=== PATIENT | male | born 1995 | race Caucasian/White ===

== ENCOUNTER 2017-08-20 22:47 | Emergency (ER) | payer SELFPAY ==
[2017-08-20] MEDS ORDERED: CEFDINIR 125 MG/5 ML 60ML PO ONE (23:29)
[2017-08-20] MEDS ORDERED: DEXAMETHASONE SOD PHOSPHATE 10MG/ML VIAL PO ONE (23:29)
--- NOTE | 2017-08-20 23:29 | Emergency Department Record ---
History of Present Illness - General Chief complaint: Facial Swelling Stated complaint: SWELLING ON LEFT SIDE OF FACE Time Seen by Provider: 08/20/17 22:48 Source: Patient Mode of Arrival: Ambulatory Limitations: No limitations - History of Present Illness Initial Comments: 21 yo male presents to ED for evaluation of facial swelling to the left side of the lower face x 1 day. Caregivers at the bedside report recent dental pain x 2 days for his swelling symptoms began, deny fevers, chills, or recent illness. Patient is non-verbal due to mental retardation. MD Complaint: Facial swelling Onset/Timin -: Days(s) Exposure: Unknown Severity: Moderate Treatment Prior to Arrival: None Previous Allergy History: None - Related Data Previous Rx's Medication Instructions Recorded Cefdinir [Omnicef] 7.5 ml PO BID #150 ml 08/20/17 Allergies Allergy/AdvReac Type Severity Reaction Status Date / Time No Known Drug Allergies Allergy Verified 08/20/17 23:31 Travel Screening - Travel/Exposure Within Last 30 Days Have you traveled within the last 30 days?: No - Travel Symptoms Symptom Screening: None Review of Systems Constitutional: Denies: Chills, Fever, Malaise, Night sweats Eyes: Denies: Eye discharge, Eye pain ENT: Reports: Dental pain. Denies: Congestion, Ear pain Respiratory: Denies: Cough, Dyspnea Cardiovascular: Denies: Chest pain, Dyspnea on exertion Endocrine: Denies: Fatigue, Heat or cold intolerance Gastrointestinal: Denies: Abdominal pain, Vomiting Genitourinary: Denies: Incontinence, Retention Musculoskeletal: Denies: Arthralgia, Back pain Skin: Denies: Bruising, Change in color Neurological: Denies: Abnormal gait Psychiatric: Denies: Anxiety Hematological/Lymphatic: Denies: Anemia, Blood Clots Past Medical History - SOCIAL HISTORY Smoking Status: Never smoker - RESPIRATORY Hx Respiratory Disorders: No - CARDIOVASCULAR Hx Cardio Disorders: No - NEURO Hx Neuro Disorders: Yes Comment:: Hydrocephalus - GI Hx GI Disorders: No - Hx Genitourinary Disorders: No - ENDOCRINE Hx Endocrine Disorders: No - MUSCULOSKELETAL Hx Musculoskeletal Disorders: No - PSYCH Hx Psych Problems: No - HEMATOLOGY/ONCOLOGY Hx Hematology/Oncology Disorders: No Family Medical History Any Significant Family History?: No Family Hx Comment (NOT TO BE USED IN PLACE OF ITEMS BELOW): adopted Physical Exam - General General Appearance: Alert, Oriented x3, Cooperative, Mild distress Limitations: No limitations - Head Head exam: Atraumatic Head exam detail: Other (STS to the left mandibular region on examination, no induration or fluctuance is present). negative: Abrasion, Contusion, Restrepo's sign, General tenderness, Hematoma, Laceration - Eye Eye exam: negative: Periorbital swelling, Periorbital tenderness - ENT Ear exam: negative: Auricular hematoma, Auricular trauma Nasal Exam: Normal inspection. negative: Active bleeding, Discharge, Foreign body Mouth exam: negative: Laceration, Muffled voice Teeth exam: Dental caries Throat exam: negative: Tonsillar erythema, Tonsillomegaly, R peritonsillar mass , L peritonsillar mass Image of Mouth/Teeth: 1 - Dental fracture present, no gingival abscess present - Neck Neck exam: Normal inspection. negative: Meningismus, Tenderness - Respiratory Respiratory exam: Normal lung sounds bilaterally. negative: Rales, Respiratory distress, Rhonchi, Stridor - Cardiovascular Cardiovascular Exam: Regular rate, Normal rhythm, Normal heart sounds - GI/Abdominal GI/Abdominal exam: Soft. negative: Rebound, Rigid, Tenderness - Rectal Rectal exam: Deferred - exam: Deferred - Extremities Extremities exam: Normal inspection. negative: Pedal edema, Tenderness - Back Back exam: Denies: CVA tenderness (R), CVA tenderness (L) - Neurological Neurological exam: Alert - Psychiatric Psychiatric exam: Normal affect, Normal mood - Skin Skin exam: Normal color. negative: Abrasion Type of lesion: negative: abrasion Course Vital Signs 08/20/17 23:17 Temperature 98.3 F Pulse Rate [ 63 Pulse Ox Probe] Respiratory 20 Rate Blood Pressure 128/74 [Left Arm] Pulse Ox 95 - Reevaluation(s) Reevaluation #1: 08/20/17 23:34 No evidence for gingival or subcutaneous abscess is present on examination, will treat for dental fracture and probable dental abscess with cefdinir and decadron in ED for his STS and reactive edema symptoms. Patient appears stable for discharge at this time. Disposition Disposition: Discharge Clinical Impression: Dental abscess Disposition: Home, Self-Care Condition: (2) Stable Instructions: Dental Abscess (ED) Additional Instructions: Return to ED if your symptoms worsen or if you have any concerns. Cefidinir as directed. Follow-up with your dentist 1-3 days as directed. Prescriptions: Cefdinir [Omnicef] 7.5 ml PO BID #150 ml Forms: Patient Portal Access Time of Disposition: 23:29 Quality - Quality Measures Quality Measures: N/A - Blood Pressure Screening Does Patient Have Any of the Following: No Blood Pressure Classification: Pre-Hypertensive BP Reading Systolic Measurement: 128 Diastolic Measurement: 74 Screening for High Blood Pressure: < Pre-Hypertensive BP, F/U Documented > [ G8950] Pre-Hypertensive Follow-up Interventions: Referral to alternative/primary care provider.
== END 2017-08-20 23:46 | disposition home or self-care (01) ==
LOC: ER 22:47
DX: S02.5XXA Fracture of tooth (traumatic), initial encounter for closed fracture (principal); K04.7 Periapical abscess without sinus; X58.XXXA Exposure to other specified factors, initial encounter
CPT/HCPCS: J3490; J1100; 99282

== ENCOUNTER 2018-06-22 00:11 | Emergency (ER) | payer MEDICAID ==
--- NOTE | 2018-06-22 00:44 | Emergency Department Record ---
History of Present Illness - General Chief complaint: ENT Stated complaint: NON VERBAL Time Seen by Provider: 06/22/18 00:41 Source: Family Mode of Arrival: Ambulatory Limitations: Other - History of Present Illness Initial comments: 22 yo male with a history significant for mental retardation and non-verbal at his baseline presents to ED for evaluation of possible right ear/dental pain symptoms. Family reports that the patient has been pulling at his right ear and squinting as though he is in pain. Family members deny fevers, chills, or recent illness. MD complaint: Ear pain, Tooth pain, Other Onset/Timin -: Hour(s) Location: R ear - Related Data Previous Rx's Medication Instructions Recorded Amoxicillin [Amoxil] 10 ml PO BID #200 ml 06/22/18 Allergies Allergy/AdvReac Type Severity Reaction Status Date / Time No Known Drug Allergies Allergy Verified 08/20/17 23:31 Travel Screening - Travel/Exposure Within Last 30 Days Have you traveled within the last 30 days?: No - Travel Symptoms Symptom Screening: None Review of Systems ROS unobtainable: Other Past Medical History - SOCIAL HISTORY Smoking Status: Never smoker - RESPIRATORY Hx Respiratory Disorders: No - CARDIOVASCULAR Hx Cardio Disorders: No - NEURO Hx Neuro Disorders: Yes Comment:: Hydrocephalus - GI Hx GI Disorders: No - Hx Genitourinary Disorders: No - ENDOCRINE Hx Endocrine Disorders: No - MUSCULOSKELETAL Hx Musculoskeletal Disorders: No - PSYCH Hx Psych Problems: No - HEMATOLOGY/ONCOLOGY Hx Hematology/Oncology Disorders: No Family Medical History Any Significant Family History?: No Family Hx Comment (NOT TO BE USED IN PLACE OF ITEMS BELOW): adopted Physical Exam - General General Appearance: Alert, Cooperative, Mild distress Limitations: Other - Head Head exam: Atraumatic, Normocephalic, Normal inspection Head exam detail: negative: Abrasion, Contusion, Restrepo's sign, General tenderness, Hematoma, Laceration - Eye Eye exam: Normal appearance. negative: Conjunctival injection, Periorbital swelling, Periorbital tenderness, Scleral icterus - ENT Ear exam: Other (Right TM obscurred by cerumen). negative: Auricular hematoma, Auricular trauma Nasal Exam: negative: Active bleeding, Discharge, Dried blood, Foreign body Mouth exam: negative: Drooling, Laceration, Muffled voice, Tongue elevation Teeth exam: Dental caries Throat exam: negative: Tonsillar erythema, Tonsillomegaly, R peritonsillar mass , L peritonsillar mass Image of Mouth/Teeth: 1 - Dental caaries present on examination - Neck Neck exam: Normal inspection. negative: Meningismus, Tenderness - Respiratory Respiratory exam: Normal lung sounds bilaterally. negative: Rales, Respiratory distress, Rhonchi, Stridor - Cardiovascular Cardiovascular Exam: Regular rate, Normal rhythm, Normal heart sounds - GI/Abdominal GI/Abdominal exam: Soft. negative: Rebound, Rigid, Tenderness - Rectal Rectal exam: Deferred - exam: Deferred - Extremities Extremities exam: Normal inspection. negative: Calf tenderness, Pedal edema, Tenderness - Back Back exam: Denies: CVA tenderness (R), CVA tenderness (L) - Neurological Neurological exam: Alert, Other (At baseline per family) - Psychiatric Psychiatric exam: Normal affect, Normal mood - Skin Skin exam: Normal color. negative: Abrasion Type of lesion: negative: abrasion Course Vital Signs 06/22/18 00:35 Temperature 97.9 F Pulse Rate [ 65 Pulse Ox Probe] Respiratory 20 Rate Blood Pressure 122/79 [Left Arm] Pulse Ox 95 - Reevaluation(s) Reevaluation #1: 06/22/18 00:47 Right TM obscured by cerumen Dental caries are present lower right mandible. Will treat with liquid amoxicillin as directed for dental caries and possible undiagnosed otitis media. Family at the bedside agrees with the plan of care as discussed. Disposition Disposition: Discharge Clinical Impression: Dental caries Disposition: Home, Self-Care Condition: (2) Stable Instructions: Dental Abscess (ED) Additional Instructions: Return to ED if your symptoms worsen or if you have any concerns. Amoxicillin as directed. Follow-up with your family doctor in 1-3 days as directed. Prescriptions: Amoxicillin [Amoxil] 10 ml PO BID #200 ml Forms: Patient Portal Access Time of Disposition: 00:43 Quality - Quality Measures Quality Measures: N/A - Blood Pressure Screening Does Patient Have Any of the Following: No Blood Pressure Classification: Pre-Hypertensive BP Reading Systolic Measurement: 122 Diastolic Measurement: 79 Screening for High Blood Pressure: < Pre-Hypertensive BP, F/U Documented > [ G8950] Pre-Hypertensive Follow-up Interventions: Referral to alternative/primary care provider.
[2018-06-22] MEDS: AMOXICILLIN 400 MG/5 ML ML PO ONE (00:55)
== END 2018-06-22 00:59 | disposition home or self-care (01) ==
LOC: ER 00:11
DX: K02.9 Dental caries, unspecified (principal); H61.21 Impacted cerumen, right ear; H92.01 Otalgia, right ear
CPT/HCPCS: 99282